=== PATIENT | male | born 1995 | race Caucasian/White ===

== ENCOUNTER 2020-11-19 18:26 | Emergency (ER) | payer MEDICAID ==
[~2020-11-19] VITALS: Ht 170.2 cm; Wt 72.6 kg
[2020-11-19 18:26] VITALS: BP_SYST 118
--- NOTE | 2020-11-19 18:26 | NUR ---
BROUGHT BACK TO BED #6 AND TRIAGED. REPORT GIVEN TO ESTEBAN
--- NOTE | 2020-11-19 19:36 | NUR ---
DR MC IN TO ASSESS
--- NOTE | 2020-11-19 19:50 | NUR ---
MEAL PROVIDED, NO DISTRESS, AAO, CLEAR MENTATION AND SPEECH. NO DISTRESS
--- NOTE | 2020-11-19 20:12 | NUR ---
RESP UNLABORED, EASILY AROUSED, NO DISTRESS
[2020-11-19 20:20] LABS: BASOPHILS # (AUTO) 0.1 K/uL (0.0-0.2); BASOPHILS % (AUTO) 0.8 % (0.0-2.0); EOSINOPHILS # (AUTO) 0.1 K/uL (0.0-0.4); EOSINOPHILS % (AUTO) 1.2 % (0.0-4.0); HEMATOCRIT 44.8 % (36-54); HEMOGLOBIN 14.9 g/dL (14.0-18.0); LYMPHOCYTES % (AUTO) 30.6 % (20.5-51.5); MEAN CORPUSCULAR HEMOGLOBIN 29 pg (27-31); MEAN CORPUSCULAR HGB CONC 33 % (32-36); MEAN CORPUSCULAR VOLUME 88 fL (79.0-98.0); MONOCYTES # (AUTO) 0.5 K/uL (0.0-1.0); MONOCYTES % (AUTO) 6.9 % (1.7-9.3); NEUTROPHILS # (AUTO) 3.9 K/uL (1.8-7.7); NEUTROPHILS % (AUTO) 60.5 % (40.0-70.0); PLATELET COUNT (AUTO) 268 K/uL (130-430); RED BLOOD CELL COUNT(AUTO) 5.09 MIL/uL (4.2-6.2); RED CELL DISTRIBUTION WIDTH 14.2 % (9.0-15.0); WHITE BLOOD COUNT (AUTO) 6.5 K/uL (4.8-10.8)
[2020-11-19 20:37] LABS: CALCIUM 9.2 mg/dL (8.4-11.0); CREATININE 0.96 mg/dL (0.55-1.30); POTASSIUM 3.2 mmol/L (3.5-5.1)
--- NOTE | 2020-11-19 20:55 | NUR ---
DR MC IN TO REASSESS
--- NOTE | 2020-11-19 21:06 | NUR ---
SITTING UP TALKING ON HIS PHONE, ATTEMPT MADE TO CONTACT FRIEND
[2020-11-19 21:44] VITALS: BP_SYST 123
--- NOTE | 2020-11-19 21:46 | NUR ---
Patient given written and verbal discharge instructions and verbalizes understanding. ER MD discussed with patient the results and treatment provided. Patient in stable condition. ID arm band removed. Patient educated on pain management and to follow up with PMD. Pain Scale 0/10 Opportunity for questions provided and answered. Medication side effect fact sheet provided.
== END 2020-11-19 21:46 | disposition home or self-care (01) ==
LOC: SED 18:26
DX: E16.2 Hypoglycemia, unspecified (principal); F10.10 Alcohol abuse, uncomplicated; F17.200 Nicotine dependence, unspecified, uncomplicated; X31.XXXA Exposure to excessive natural cold, initial encounter
CPT/HCPCS: 36415; 80048; 85025; 99283